=== PATIENT | female | born 1965 | race Asian ===

== ENCOUNTER 2023-04-14 09:50 | Outpatient (CLI) | payer BC | END 2023-04-14 09:51 | disposition home or self-care (01) | LOC: CSHMAMMO 09:50 | PROVIDERS: ATTEND Family Medicine | DX: Z13.820 Encounter for screening for osteoporosis (principal); M85.88 Other specified disorders of bone density and structure, other site; Z78.0 Asymptomatic menopausal state | CPT/HCPCS: 77080 ==